=== PATIENT | male | born 1950 ===

== ENCOUNTER 2022-09-26 06:53 | Day surgery (SDC) | payer MEDICARE, OTHER, SELFPAY ==
[2022-09-22 09:34] VITALS: BMI 21.4
[2022-09-26] VITALS (7 sets, daily range): BP systolic 146–192; BP diastolic 84–110; PULSE 66–92; RESP 14–19; TEMP 36.2–37; O2SAT 97–100; BMI 21.4
--- NOTE | 2022-09-26 | PATH_ITS ---
[facility] Accession Number: [id number] . 01 Material submitted: . lymph node - LEFT SENTINAL NODES . 01 Diagnosis: Left Axillary [place] Lymph Nodes, Resection: Negative for metastatic melanoma by routine H/E stain and immunohistochemistry (10 lymph nodes identified in total). [facility] 10/02/2022 1652 Local . 01 Comment: Immunostains to S100 and HMB45 are performed on all five blocks, with the controls stained appropriately. All of the lymph nodes are negative for metastatic melanoma by routine morphology and immunostains. . * This test was developed and its performance characteristics determined by [employer]. It has not been cleared or approved by the U.S. Food and Drug Administration. The FDA has determined that such clearance or approval is not necessary. This test is used for clinical purposes. It should not be regarded as investigational or for research. . 01 Electronically signed: . Precious Rodriguez MD, Pathologist NPI- [id number] . 01 Gross description: . The specimen is received in formalin labeled with the patient's name, , and left sentinel nodes, and consists of two irregular yellow to bay soft tissue fragments aggregating to 3.0 x 2.4 x 1.1 cm. Palpation reveals 10 bay lymph node candidates ranging from 0.5 to 1.0 cm in greatest dimension. The specimen is submitted entirely as follows: . A1: Single bisected lymph node candidate. A2: Two bisected lymph node candidates differentially inked blue and black. A3: Two bisected lymph node candidates differentially inked green and orange. A4: Three intact lymph node candidates. A5: Two intact lymph node candidates. ([id number]) /MRV 09/28/2022 1909 Local . 01 Pathologist provided ICD-10: C43.62 . 01 CPT . 884674, U75103, A02080 Specimen Comment: A courtesy copy of this report has been sent to [phone] Performed at: 01 [facility] [address] [place] [address], [place], [place] [id number] MD Rivera Farias MD Phone: [phone]
[2022-09-26] MEDS: LACTATED RINGERS 1,000 ML 42 ML IV (07:49)
[2022-09-26 07:50] LABS: COVID19 -Nasal RAPID Negative (Negative)
--- NOTE | 2022-09-26 07:58 | DI.NM.S_ITS ---
PROCEDURE: NM SENTINEL NODE W IMAGING RADIOPHARMACEUTICAL: 0.5 mCi Millipore filtered Tc-99m sulfur colloid. INDICATIONS: Melanoma of left arm COMPARISON: None. TECHNIQUE: Written informed consent was obtained. The area around the region of concern on the left upper extremity was prepped and draped in a sterile fashion. Tc-99m sulfur colloid was injected intra-dermally and subcutaneously around the biopsy scar. Images were obtained approximately 60 minutes after tracer injection. FINDINGS: There appears to be 2 sentinel lymph nodes within the left axillary region. IMPRESSION: Administration of subdermal radiotracer around the site of melanoma for intra-operative sentinel lymph node localization. Dictated by: Keyon Jacobsen M.D. on 09/26/2022 at 10:04 Approved by: Keyon Jacobsen M.D. on 09/26/2022 at 10:05
--- NOTE | 2022-09-26 10:45 | PM.PREOP ---
Pre-operative Note COVID-19 COVID-19 status: Negative Result date/Date tested (Pos, Neg/Pending): 09/25/22 Interval Note History & Physical reviewed/Exam performed by Physician: Yes Changes to H&P: No ASA Class (for procedural sedation): I
--- NOTE | 2022-09-26 11:35 | SUR.OPER ---
Supine on padded OR bed, head on pillow, arms secured on padded arm boards at <90 degrees abduction, legs uncrossed, safety belt at thigh, tape over blanket over lower legs.
[2022-09-26] MEDS: METHYLENE BLUE 50 MG/10 ML VIAL INJ (11:43)
[2022-09-26] MEDS: LIDOCAINE 1% W/EPI 20 ML INJ (11:44)
--- NOTE | 2022-09-26 12:33 | PM.OP.1 ---
Operative Date/Time/Diagnoses Date of procedure: 09/26/22 Time of procedure: 12:34 Pre-op diagnosis: Left arm melanoma Post-op diagnosis: same Procedure & Clinicians Procedure: Left arm sentinel lymph node biopsy Same procedure as scheduled: Yes Surgeon: Davian Echeverria Anesthesia Type: General Operative Notes Procedure in detail: The patient is a 72-year-old man who had gone a recent left arm wide local excision of a melanoma by Dr. Hodges that was 2.5 mm deep. The patient was brought to the operating room and placed on the table in the supine position. General anesthesia was induced. A time-out was performed. Roughly 3 mL of methylene blue were injected into the left arm just proximal to the biopsy scar from the prior melanoma excision. The left arm was placed on an arm board and the left axilla was prepped and draped in the usual manner. We used the probe to identify a target sentinel node high in the left axilla. We then injected local and made a 5 cm transverse incision beneath the higher line. We dissected into the axillary space and identified a rather large but soft potential lymph node. We did not see any of the methylene blue dye but there was a good signal from the lymphoscintigraphy probe. This was dissected free using a combination of blunt, sharp dissection, cautery and mini clips on the vessels to remove the node. This was measured ex vivo and measured 1230 on a 10 second count. The background however was 668 so we continued to search. An additional node was located deep to the lateral border of the pectoralis major muscle and extracted in a similar manner. The combined count for both nodes ex vivo was 1585 with a background of 155. We then set to lymph nodes in formalin. We irrigated wound. A few small bleeders were cauterized. We injected some additional local into the deep aspect of the wound. We then closed the wound in layers using multiple interrupted 3-0 Vicryl dermal sutures followed by a running 4 Monocryl subcuticular closure. EBL: 10 mL Specimens: Left sentinel lymph nodes Post-operative Condition: stable Disposition: PACU
--- NOTE | 2022-09-26 13:13 | SUR.PHASEI ---
1300 ARELIS Farr notified that pt BP was 192/102, pt not in pain, no headache, and appears comfortable. ARELIS Farr stated that pt can discharge home with no orders to treat BP.
--- NOTE | 2022-09-26 14:01 | SUR.PHASEII ---
Dr Echeverria at bedside. Viewed left forearm with swelling at dye injection site. Pt to expect blue, bruising and swelling. Wiill call MD for increased pain or significant swelling or s/sx of infection. MD informed of BP 185/98. Ok for discharge. Pt steady on feet at bedside.
== END 2022-09-26 14:02 | disposition home or self-care (01) ==
PROVIDERS: PCP Family Medicine; Referring Provider Surgery; Visit Provider Surgery
PROC: (CPT 38525; principal; 2022-09-26 08:45)
DX: C43.62 Malignant melanoma of left upper limb, including shoulder (principal); Z20.822 Contact with and (suspected) exposure to COVID-19
CPT/HCPCS: 38525; 78195; 87635; A9541; C9803; J2405; J2704; J3010; Q9968